=== PATIENT | male | born 1935 | race Caucasian/White ===

== ENCOUNTER 2017-10-19 13:51 | Inpatient (IN) | payer MEDICARE, OTHER ==
[~2017-10-19] VITALS: Ht 177.8 cm; Wt 77.0 kg
--- NOTE | 2017-10-19 14:32 | NUR ---
amb to room 6 with steady gait.
--- NOTE | 2017-10-19 14:49 | NUR ---
PT C/O ABD "BLOATING" & NAUSEA & TROUBLE HAVING A BM SINCE SUNDAY. DENIES VOMIT/DIARRHEA. DENIES PAIN AT THIS TIME.
[2017-10-19 15:07] LABS: HEMATOCRIT 44.8 % (39.0-50.0); HEMOGLOBIN 14.7 g/dl (14.0-18.0); MEAN CELL VOLUME 92.6 fL CALC (80.0-100.0); MEAN CORPUSCULAR HGB 30.4 pG CALC (26.0-32.0); MEAN CORPUSCULAR HGB CONC 32.8 g/L CALC (32.0-36.0); PLATELET COUNT 164 thou/uL (130-400); RED BLOOD COUNT 4.84 mill/uL (4.70-6.10); RED CELL DISTRI WIDTH 13.2 % (11.5-15.5)
[2017-10-19 15:10] LABS: MANUAL DIFFERENTIAL YES
--- NOTE | 2017-10-19 15:15 | NUR ---
PT REFUSED IV MORPHINE AND ZOFRAN. PER PT MY PAIN AND NAUSEA ISN'T THAT BAD. MD NOTIFIED AND MEDICATIONS WASTED.
[2017-10-19 15:26] LABS: BAND 24 % (0-8)
[2017-10-19 15:48] LABS: ALKALINE PHOSPHATASE 61 u/l (38-126); ANION GAP 17 (6-22 (CALC)); BILIRUBIN, TOTAL 1.3 mg/dL (0.0-1.4); BUN 46 mg/dL (8-23); BUN/CREATININE RATIO 42 (12-20 (CALC)); CARBON DIOXIDE 26 mmol/l (22-30); CHLORIDE 99 mmol/l (95-108); CREATININE 1.1 mg/dL (0.7-1.3); GFR > 60 ML/MIN (>=60 (CALC)); GFR FOR AFR.AMER. > 60 ML/MIN (>=60 (CALC)); SGOT/AST 36 u/l (19-48); SGPT/ALT 34 u/l (11-66); SODIUM 139 mmol/l (137-146); TOTAL PROTEIN 6.7 g/dL (6.3-8.2)
--- NOTE | 2017-10-19 16:00 | NUR ---
PT AND AWARE OF BUSY ED AND WAIT TIME. CALL [facility] WITHIN REACH, WILL CONTINUE TO MONITOR.
--- NOTE | 2017-10-19 18:05 | NUR ---
#12FR NG TUBE INSERTED. PT TOLERATED PROCEDURE WELL. TUBE ATTACHED TO INTERMIT MED SUCTION. TUBE VERIFIED BY AUSCULTATION. XR TAKEN- UNSURE OF VERIFICATION AT THIS TIME.
[2017-10-19] MEDS ORDERED: MULTIVITAMIN ME1 TA1 PO (18:50)
[2017-10-19] MEDS ORDERED: ALEVE220 M2 PO (18:51)
[2017-10-19] MEDS ORDERED: ASPIRIN ADULT L81 M2 PO (18:52)
[2017-10-19] MEDS ORDERED: KEPPRA500 M2 PO (18:53)
[2017-10-19] MEDS ORDERED: CALCIUM CITRATE +D PO (18:54)
[2017-10-19] MEDS ORDERED: TOPROL XL PO (18:56)
[2017-10-19] MEDS ORDERED: BIOTIN5000 MCG PO (18:58)
--- NOTE | 2017-10-19 19:08 | NUR ---
REPORT GIVEN TO GUILLE STILES.
--- NOTE | 2017-10-19 19:15 | NUR ---
NG INSERTED A COUPLE CM MORE TO NEXT BLACK STUART PER XR RESULTS.
[2017-10-19 19:20] VITALS: BP 160/66
--- NOTE | 2017-10-19 19:20 | NUR ---
PT TO FLOOR VIA STRETCHER ACCOMPANIED BY ER STAFF.
--- NOTE | 2017-10-19 19:20 | NUR ---
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
--- NOTE | 2017-10-19 20:00 | NUR ---
PT SITTING UP IN BED. PT IS ALERT AND ORIENTED X3. PERRLA. LUNGS ARE CLEAR. RESP ARE EVEN AND UNLABORED. HR REGULAR. PULSES PALPABLE THROUGHOUT. NO EDEMA NOTED. BS HYPOACTIVE. NG TUBE TO LIS. #22 LFA SALINE LOCKED. NO REDNESS OR EDEMA NOTED. WILL CONTINUE TO MONITOR
--- NOTE | 2017-10-20 | NUR ---
PT RESTING IN BED WITH EYES CLOSED. PT AROUSES EASILY TO VERBAL STIMULI. RESP ARE EVEN AND UNLABORED. NO DISTRESS NOTED. WILL CONTINUE TO FRANK
[2017-10-20 04:05] VITALS: BP 135/64
--- NOTE | 2017-10-20 04:16 | NUR ---
PT RESTING IN BED WITH EYES CLOSED. RESP ARE EVEN AND UNLABORED. NO DISTRESS NOTED. NG TO LIS. WILL CONTINUE TO MONITOR
--- NOTE | 2017-10-20 07:45 | NUR ---
NGT AT LIS FLUID IN LINE BUT NOT COMING IN THE CANISTER , CHECKED FOR PLACEMENT AND ABLE TO HEAR. DARK GREEN FLUID. CHANGED MACHINE AND A LITTLE BETTER WILL CONTINUE TO CHECK ON ANY PROBLEMS.
[2017-10-20 08:29] VITALS: BP 176/64
--- NOTE | 2017-10-20 08:29 | NUR ---
ASSESSMENT IS COMPLETED: BS ARE HYPO, IV SITE IS FREE FROM REDNESS OR EDEMA. NGT AT LIS. CONTINUE TO OSBERVE AND MONITOR.
[2017-10-20 09:26] LABS: URINE BILIRUBIN - DIPSTICK NEGATIVE (NEGATIVE); URINE BLOOD DIPSTICK NEGATIVE (NEGATIVE); URINE COLOR YELLOW; URINE GLUCOSE - DIPSTICK NEGATIVE (NEGATIVE); URINE KETONE >=80 mg/dL (NEGATIVE); URINE LEUK ESTERASE NEGATIVE (NEGATIVE); URINE NITRITE - DIPSTICK NEGATIVE (Negative); URINE PH 6.5 (4.5-8.0); URINE PROTEIN - DIPSTICK 30 mg/dL (NEG-TRACE)
[2017-10-20 09:31] LABS: URINE CLARITY CLEAR
[2017-10-20 09:41] LABS: URINE RBC 0-2 RBC/hpf (0-5); URINE WBC 0-2 WBC/hpf (0-5)
[2017-10-20 09:48] LABS: HEMATOCRIT 39.7 % (39.0-50.0); HEMOGLOBIN 13.5 g/dl (14.0-18.0); IMMATURE GRANULOCYTES 0.2 % (0.0-1.0); MEAN CELL VOLUME 91.1 fL CALC (80.0-100.0); NEUT# 2.75 thou/uL (1.82-7.42); RED BLOOD COUNT 4.36 mill/uL (4.70-6.10); RED CELL DISTRI WIDTH 12.9 % (11.5-15.5)
[2017-10-20 10:17] LABS: ANION GAP 15 (6-22 (CALC)); BUN 29 mg/dL (8-23); BUN/CREATININE RATIO 32 (12-20 (CALC)); CARBON DIOXIDE 27 mmol/l (22-30); CHLORIDE 100 mmol/l (95-108); CREATININE 0.9 mg/dL (0.7-1.3); GFR > 60 ML/MIN (>=60 (CALC)); GFR FOR AFR.AMER. > 60 ML/MIN (>=60 (CALC)); MAGNESIUM 1.9 mg/dL (1.6-2.3); POTASSIUM 3.2 mmol/l (3.5-5.1); SODIUM 139 mmol/l (137-146)
--- NOTE | 2017-10-20 12:00 | NUR ---
PT IS RELAXIGN IN BED WITH NO DISTRESS NOTED,. IV SITE IS FREE FROM REDNESS OR EDEMA. NGT IS INTACT.CONTINUE TO OSBERVE AND MONITOR.
--- NOTE | 2017-10-20 14:30 | NUR ---
INQUIRED ABOUT RESULTS. WILL PLACE ON THE TOP OF THE LIST .
--- NOTE | 2017-10-20 16:00 | NUR ---
PT IS RELAXING IN BED WANTED TO WASH FACE NO C/O PAIN. SOME BLOATING. DID PASS FLATUS. IV SITE IS FREE FROM REDNESS OR EDEMA. CONTINUE TO OSBERVE AND MONITOR.
[2017-10-20 16:31] VITALS: BP 128/63
--- NOTE | 2017-10-20 17:30 | NUR ---
CALLED AND INQUIRED IF THE RESULTS WERE IN . INFORMED THAT DID CALL RADIOLOGY. THEN CALLED AND THEY WILL CALL RADIOLOGIST. UPON RECEIPT WANTS US TO CALL HIM.
--- NOTE | 2017-10-20 19:32 | NUR ---
PLACED A CALL TO RADIOLOGY, RESULTS ARE NOW IN, PLACED A CALL TO AND LEFT A MESSAGE FOR HIM TO RETURN THE CALL.
[2017-10-20 19:35] VITALS: BP 154/72
--- NOTE | 2017-10-20 19:38 | NUR ---
PATIENT ASSISTED TO BSC FOR LARGE LOOSE GREEMISH BROWN STOOL. PATIENT STATES THAT HE FEELS BETTER. NGT REMAINS TO LIWS ORDERED. BACK TO THE BED. CALL LIGHT IN REACN. WILL CONT TO MONITOR.
--- NOTE | 2017-10-20 19:47 | NUR ---
SPOKE WITH RE: CT RESULTS. NEW ORDERS FOR KUB IN THE AM.
--- NOTE | 2017-10-20 21:00 | NUR ---
PATIENT RESTING IN BED-STATES THAT HE FEELS MUCH BETTER SINCE HAVING BM TONIGHT. ABD IS SOFT WITH ACTIVE BS. NGT REMAINS TO LIWS ORDERED-DRAINING SMALL AMT OF CLEAR WITH FLECKS IN TUBING. PATIENT REMAINS NPO-SPONGE SWABS AVAILABLE FOR ORAL HYGEINE. IVF LR PATENT AND INFUSING VIA LEFT FOREARM SITE-SITE APPEARS HEALTHY AT THIS TIME. PATIENT DENIES ANY PAIN. PATIENT VOIDING BRITT URINE IN URINAL. SAFETY PRECAUTIONS REINFORCED. CALL LIGHT IN REACH. WILL CONT TO MONITOR.
--- NOTE | 2017-10-21 | NUR ---
RESTING IN BED WITH NO COMPLAINTS AT THIS TIME. IVF PATENT AND INFUSING AT 125CC/HR. NGT TO LIWS ORDERED WITH SMALL AMT OF CLEAR WITH BROWN FLECKS IN TUBING. CALL LIGHT IN REACH. WILL CONT TO MONITOR.
--- NOTE | 2017-10-21 02:30 | NUR ---
IV SITE IS LEAKING AND SITE D/AINSLEY. NEW IV SITE STARTED TO LEFT UPPER ARM-#22 GAUGE WITH GOOD BLOOD RETURN. IVF PATENT AND INFUSING AT 125CC/HR. NGT PATENT AND DRAINING LIGHT BROWN FLUID AT THIS TIME-LIWS IN PLACE. CALL LIGHT IN REACH. WILL CONT TO MONITOR.
[2017-10-21 04:32] VITALS: BP 142/75; BP 143/68
--- NOTE | 2017-10-21 05:09 | NUR ---
PATIENT RESTING IN BED WITH NO COMPLAINTS AT THIS TIME. IVF PATENT AND INFUSING ORDERED. NGT TO LIWS DRAINING BROWNISH FLUIDS. NO COMPLAINTS OF PAIN. CALL LIGHT IN REACH. WILL CONT TO MONITOR.
[2017-10-21 05:10] LABS: HEMATOCRIT 39.2 % (39.0-50.0); HEMOGLOBIN 13.6 g/dl (14.0-18.0); MEAN CELL VOLUME 88.7 fL CALC (80.0-100.0); MEAN CORPUSCULAR HGB 30.8 pG CALC (26.0-32.0); MEAN CORPUSCULAR HGB CONC 34.7 g/L CALC (32.0-36.0); RED BLOOD COUNT 4.42 mill/uL (4.70-6.10); RED CELL DISTRI WIDTH 12.5 % (11.5-15.5)
[2017-10-21 05:35] LABS: ANION GAP 16 (6-22 (CALC)); BUN 26 mg/dL (8-23); BUN/CREATININE RATIO 32 (12-20 (CALC)); CARBON DIOXIDE 26 mmol/l (22-30); CHLORIDE 101 mmol/l (95-108); CREATININE 0.8 mg/dL (0.7-1.3); GFR > 60 ML/MIN (>=60 (CALC)); GFR FOR AFR.AMER. > 60 ML/MIN (>=60 (CALC)); MAGNESIUM 2.1 mg/dL (1.6-2.3); POTASSIUM 3.4 mmol/l (3.5-5.1); SODIUM 140 mmol/l (137-146)
[2017-10-21 08:00] VITALS: BP 180/69
--- NOTE | 2017-10-21 08:00 | NUR ---
ASSESSMENT IS COMPLTED: NGT IN LIS DARK GREEN FLUID. IV SITE IS FREE FROM REDNESS OR EDEMA. ABD IS SOFT WITH ACTIVE BS. CONTINUE TO OBSERVE AND MONITOR.
--- NOTE | 2017-10-21 09:40 | NUR ---
REMOVED NGT , PT TOLERATED WELL. IV SITE REMAINS FREE FROM REDNESS OR EDEMA. CONITNUE TO OSBERVE AND MONITOR
[2017-10-21 09:48] VITALS: BP 143/68
--- NOTE | 2017-10-21 10:37 | NUR ---
SPOKE WITH DR. LUTHER AND GAVE RESULTS FOR THE KUB. ORDERS TO DC THE NGT AND START ON DIET. CONITNUE TO OBSERVE AND MONITOR.
--- NOTE | 2017-10-21 11:07 | NUR ---
PT IS WEEPING IN THE ROOM. SIGNIFICANT OTHER CAME AND INQUIRED WHAT WAS GOING ON. PT HAS BEEN WATCHING THE NEWS ABOUT THE SENATE. ALSO SPOKE TO HIS DAUGHTER AND WAS REAL WEEPY. CONTINUE TO CALM PT DOWN AND INFORMED OF THE DR BEING IN HOUSE AND SEEING PTS
--- NOTE | 2017-10-21 12:30 | NUR ---
PT AMBULATED IN THE [place] WITH NO DISTRESS NOTED.
[2017-10-21] MEDS ORDERED: FLORASTOR250 M1 PO (12:55)
[2017-10-21] MEDS ORDERED: CIPROFLOXACN500 MG PO (12:55)
[2017-10-21] MEDS ORDERED: METRONIDAZOL500 MG PO (12:55)
[2017-10-21] MEDS ORDERED: COLACE100 MG PO (12:55)
--- NOTE | 2017-10-21 14:33 | NUR ---
PT BEING TRANSPORTED TO CAR WITH SIGNIFICANT OTHER. IV SITE DISCONTINEUD CATHETER INTACT. NO REDNESS OR EDEMA. ALL DISCHARGE INSTRUCTIONS GIVEN AND VERBALIZED UNDERSTANDING.
--- NOTE | 2017-10-21 14:40 | NUR ---
Discharge instructions given. Patient verbalizes understanding of same. Discharged in stable condition via Wheelchair to Home with family. All belongings sent with pt.
== END 2017-10-21 14:20 | disposition home or self-care (01) | DRG 390 ==
LOC: ED 13:51 → ED-I 17:40 → ED 18:04 → MS2 18:05
PROVIDERS: Family Medicine; Nurse Practitioner Family; ADMIT Internal Medicine; ATTEND Internal Medicine
DX: K56.51 Intestinal adhesions [bands], with partial obstruction (principal); G40.909 Epilepsy, unspecified, not intractable, without status epilepticus; I10 Essential (primary) hypertension; M19.90 Unspecified osteoarthritis, unspecified site
CPT/HCPCS: J1953

== ENCOUNTER → 2018-11-12 | Outpatient (REF) | payer MEDICARE, OTHER ==
[~2018-11-12] MED LIST: ALEVE220 M2 PO; ASPIRIN ADULT L81 M2 PO; BIOTIN5000 MCG PO; CALCIUM CITRATE +D PO; CIPROFLOXACN500 MG PO; COLACE100 MG PO; FLORASTOR250 M1 PO; KEPPRA500 M2 PO; METRONIDAZOL500 MG PO; MULTIVITAMIN ME1 TA1 PO; TOPROL XL PO
[2018-11-12 09:41] LABS: HEMATOCRIT 42.4 % (39.0-50.0); HEMOGLOBIN 14.2 g/dl (14.0-18.0); IMMATURE GRANULOCYTES 0.2 % (0.0-5.0); MEAN CORPUSCULAR HGB 30.8 pG CALC (26.0-32.0); MEAN CORPUSCULAR HGB CONC 33.5 g/L CALC (32.0-36.0); NEUT# 2.76 thou/uL (1.82-7.42); RED BLOOD COUNT 4.61 mill/uL (4.70-6.10); RED CELL DISTRI WIDTH 12.8 % (11.5-15.5)
[2018-11-12 10:02] LABS: ALKALINE PHOSPHATASE 46 u/l (38-126); ANION GAP 11 (6-22 (CALC)); BILIRUBIN, TOTAL 0.8 mg/dL (0.0-1.4); BUN 18 mg/dL (8-23); BUN/CREATININE RATIO 21 (12-20 (CALC)); CALCULATED LDLCHOLESTEROL 105 mg/dL (62-129 (CALC)); CARBON DIOXIDE 31 mmol/l (22-30); CHLORIDE 98 mmol/l (95-108); CHOLESTEROL HDL RATIO 3.8 (<4.4 (CALC)); CREATININE 0.9 mg/dL (0.7-1.3); GFR > 60 ML/MIN (>=60 (CALC)); GFR FOR AFR.AMER. > 60 ML/MIN (>=60 (CALC)); HDL CHOLESTEROL 44 mg/dL (>=40); POTASSIUM 4.3 mmol/l (3.5-5.1); SGOT/AST 22 u/l (19-48); SODIUM 136 mmol/l (137-146); TOTAL CHOLESTEROL 170 mg/dl (0-199); TOTAL PROTEIN 6.6 g/dL (6.3-8.2); TOTAL TRIGLYCERIDES 105 mg/dl (30-149); VLDL CHOLESTROL 21 mg/dl (0-38 (CALC))
[2018-11-12 10:29] LABS: TSH, 3RD GENERATION 0.15 uIU/mL (0.47 - 4.68)
== END | disposition home or self-care (01) ==
LOC: LAB 08:30
PROVIDERS: ATTEND Internal Medicine
DX: C61 Malignant neoplasm of prostate (principal); I10 Essential (primary) hypertension